=== PATIENT | female | born 1965 | race Two or more races ===

== ENCOUNTER 2019-10-07 16:27 | Emergency (ER) | payer OTHER ==
[~2019-10-07] VITALS: Ht 162.6 cm; Wt 63.0 kg
[2019-10-07 18:42] VITALS: BP 150/90
[2019-10-07] MEDS ORDERED: KETOROLAC TROMETH 60MG/2ML VIAL IM ONE (19:15)
[2019-10-07] MEDS ORDERED: BACLOFEN 10 MG TAB PO ONE (19:15)
== END 2019-10-07 19:51 | disposition home or self-care (01) ==
LOC: ER 16:27
DX: M62.838 Other muscle spasm (principal); M79.601 Pain in right arm; M79.602 Pain in left arm; V03.90XA Pedestrian on foot injured in collision with car, pick-up truck or van, unspecified whether traffic or nontraffic accident, initial encounter; Y93.01 Activity, walking, marching and hiking; Y92.410 Unspecified street and highway as the place of occurrence of the external cause; Y99.8 Other external cause status
CPT/HCPCS: 73060; 96372; 99283; J1885